=== PATIENT | male | born 1985 | race Caucasian/White ===

== ENCOUNTER 2024-08-14 07:24 | Day surgery (SDC) | payer MEDICAID, SELFPAY ==
--- NOTE | 2024-08-14 08:01 | W.COLOREPORT ---
Date of service: 08/14/24 Time of Service: 08:02 Colonoscopy Report Procedure Description: PROCEDURES PERFORMED: 1. Colonoscopy PREOPERATIVE DIAGNOSIS: Screening colonoscopy, family history of colon cancer POSTOPERATIVE DIAGNOSIS: Normal terminal ileum, normal colon, normal rectum SURGEON: Paul Jackson MD INDICATION FOR PROCEDURE: the patient is a 38-year-old man whose father had colon cancer at a young age and his sister had colon polyps on her colonoscopy at the age of 41. He has no symptoms. FINDINGS: Normal terminal ileum, normal colon, normal rectum. No polyps anywhere. No inflammation. No obvious diverticular disease. No hemorrhoid disease SURVEILLANCE interval/FOLLOW-UP: 5 years because of the family history. Sooner if any symptoms/changes were to develop. SPECIMENS: None EBL: Minimal COMPLICATIONS: None QUALITY of prep: Excellent Procedure in detail: The patient gave written consent and was in agreement with the indications, the potential risks as well as the benefits of the procedure. They were taken to the endoscopy suite and laid in the left lateral decubitus position. A timeout was performed and anesthesia was administered which was tolerated well. I started the procedure. Digital rectal and visual examination was performed and grossly within normal limits. A well-lubricated flexible colonoscope was then introduced and passed without any notable difficulty all the way to the cecum identified by the ileocecal valve and the appendiceal orifice. The terminal ileum was intubated and looked normal. The scope was then slowly withdrawn with the above-noted findings. The patient tolerated the procedure well and was taken to the PACU in hemodynamically stable condition.
--- NOTE | 2024-08-14 08:02 | W.PM.DSUDISC ---
Date of service: 08/14/24 Discharge Plan Disposition Patient Disposition: Home Condition: Good Discharge Details Attending Provider: Ab Jackson Primary Care Provider: Ji Patiño Home Meds and New Rx's Prescriptions: No Action polyethylene glycol 3350 17 gram/dose powder 238 g PO ONCE Qty: 238 0RF Rx Instructions: take per colonoscopy instructions bisacodyl [Dulcolax (bisacodyl)] 5 mg tablet,delayed release (DR/EC) 5 mg PO ONCE Qty: 4 0RF Rx Instructions: take per colonoscopy instructions nicotine (polacrilex) 4 mg gum 4 mg buccal Q2H Discharge Instructions Additional Instructions: FINDINGS: No colon cancer anywhere. No polyps. No inflammation. Overall nothing to worry about. Healthy. Because of the family history, you should repeat another colonoscopy in 5 years. Activity:: Activity as Tolerated Diet:: As Tolerated Discharge Orders Discharge Orders: Discharge Order (Routine); Ordered 08/14/24 Ordered By: Ab Jackson
[2024-08-14 08:05] VITALS: BP 122/76; PULSE 59; RESP 16; TEMP 36.7; O2SAT 98
[2024-08-14] MEDS: Lactated Ringers 1,000 ML 80 ML IV (08:24)
[2024-08-14 08:41] VITALS: BMI 23.3
--- NOTE | 2024-08-14 08:41 | W.ANESPRE ---
General Info Date of Service Date Performed: 08/14/24 Height: 5 ft 11 in Weight: 76.1 kg Body Mass Index (BMI): 23.3 Surgical Procedure: Operation Date: 08/14/24 08:50 Proposed Procedure Side Surgeon p Colonoscopy Ab Jackson MD Actual Procedure Side Surgeon p Colonoscopy Not Applicable Ab Jackson MD Pre-Op Diagnosis Post-Op Diagnosis Screening Colonoscopy Family hx of colon cancer Meds Allergies and Home Medications Allergies Allergy/AdvReac Type Severity Reaction Status Date / Time No Known Allergies Allergy Verified 08/14/24 08:03 Home Medication ?Medication ?Instructions ?Recorded nicotine (polacrilex) 4 mg gum 4 mg buccal Q2H 07/11/24 bisacodyl 5 mg tablet,delayed 5 mg PO ONCE colonscopy bowel prep 08/01/24 release (Dulcolax (bisacodyl)) #4 tabs polyethylene glycol 3350 17 238 g PO ONCE colonoscopy prep 08/01/24 gram/dose oral powder #238 grams Current Visit Medications: Current Medications Generic Name Dose Route Start Last Admin Trade Name Freq PRN Reason Stop Dose Admin Ringer's Solution 1,000 mls @ 80 mls/hr 08/14/24 06:00 08/14/24 08:24 IV 08/14/24 23:59 80 mls/hr INFUSION DOUG Administration IV Miscellaneous Supplies 1 each 08/14/24 06:00 Iv Access IV 08/14/24 23:59 DIRECTED DOUG Sodium Chloride 0 ml 08/14/24 06:00 Normal Saline Flush 10 Ml Syr IV 08/14/24 23:59 PRN PRN Sodium Chloride 0 ml 08/14/24 06:00 Normal Saline 10 Ml Vial IJ 08/14/24 23:59 DIRECTED PRN Sterile Water 0 ml 08/14/24 06:00 Water,Injection,Sterile 10 Ml Vial IJ 08/14/24 23:59 DIRECTED PRN PFSH Active Problems Active Problems: Problem Status Onset Code Family history of colon cancer in father Acute Z80.0 Adjustment disorder with mixed anxiety and depressed mood Acute F43.23 Opioid dependence in remission Acute F11.21 Medical History Medical History Nicotine dependence in remission Surgical History Surgical History History of urologic surgery Hx of wisdom tooth extraction Tobacco Smoking/Tobacco Use Status: Current every day Tobacco Type: smokeless tobacco Alcohol Alcohol Intake: never Substance Use Substance use: Daily Substance use type: marijuana Details: marijuana: t-2, couple hits Vital Signs and Lab Results Vital Signs Most Recent Vital Signs in EMR: Most Recent Vital Signs Temp Pulse Resp BP Pulse Ox 36.7 C 59 L 16 122/76 98 08/14/24 08:05 08/14/24 08:05 08/14/24 08:05 08/14/24 08:05 08/14/24 08:05 Lab Results Blood Type / Crossmatch: No Data to Display Complete Blood Count: No Data to Display Complete Metabolic Panel: No Data to Display Liver Function Panel: No Data to Display Coagulation Panel: No Data to Display Cardiac Panel: No Data to Display Arterial Blood Gas: No Data to Display Venous Blood Gas: No Data to Display Pancreas Panel: No Data to Display Thyroid Panel: No Data to Display Infectious Disease: No Data to Display Blood Cultures: No Data to Display Toxicology Panel: No Data to Display Anesthesia Assessment and Plan Anesthesia History Personal History: No History of Anesthesia Complications Family History: No Family History of Anesthesia Complications Exercise Tolerance Exercise Tolerance: Metabolic Equivalents>4 Pertinent Negatives Pertinent Negatives: No Symptoms of GERD Cardiac & Pulmonary Exam Cardiac Exam: Normal S1/S2 Heart Sounds Pulmonary Exam: Clear Bilateral Breath Sounds Implantable Cardiac Device Does patient have a Pacemaker or an ICD?: No Airway Exam Known Difficult Airway: No Mallampati Class: 2 Mouth Opening: Normal (> 3cm) Thyromental Distance: Greater than 3 cm Neck Range of Motion: Full ROM Neck Circumference: Normal Teeth Condition: Normal Dentition ASA Classification ASA Score: ASA 2 Emergency Case?: No NPO Status NPO Status: NPO Clears >2 hours, Solids >8 hours Anesthesia Plan Resuscitation Status: Full Code Anesthesia Technique: General Anesthesia Airway Planned: Natural Airway Monitors Used: Standard Monitors
[2024-08-14 09:04] VITALS: BP 82/57; PULSE 58; RESP 14; TEMP 36.4; O2SAT 96
--- NOTE | 2024-08-14 09:11 | W.ANESPOSTOP ---
Postoperative Evaluation Date, Time and Location Date Performed: 08/14/24 Time Performed: 09:11 Patient Location: Day Surgery Unit Vital Signs Most Recent Imported Vital Signs: Most Recent Vital Signs Temp Pulse Resp BP Pulse Ox 36.7 C 59 L 16 122/76 98 08/14/24 08:05 08/14/24 08:05 08/14/24 08:05 08/14/24 08:05 08/14/24 08:05 Pain Score Most Recent Pain Score: Most Recent Pain Score Pain Level 0 08/14/24 08:05 Assessment Mental Status: Awake (Alert & Oriented to Patient Baseline) Airway and Respiratory Function: Patent airway with normal (patient baseline) respiratory exam Cardiovascular Function: Hemodynamically Stable Hydration Status: Adequately Hydrated Nausea & Vomiting: No Nausea or Vomiting Pain: Pt. Denies Any Pain Peripheral Nerve Block: Patient did not receive a nerve block
[2024-08-14 09:24] VITALS: BP 101/64; PULSE 54; RESP 18; TEMP 36.4; O2SAT 98
== END 2024-08-14 09:44 | disposition home or self-care (01) ==
PROVIDERS: PCP Family Medicine; Visit Provider Student in an Organized Health Care Education/Training Program
PROC: 0DJD8ZZ Inspection of Lower Intestinal Tract, Via Natural or Artificial Opening Endoscopic (ICD-10-PCS; CPT 45378; principal; 2024-08-14 08:45)
DX: Z12.11 Encounter for screening for malignant neoplasm of colon (principal); Z80.0 Family history of malignant neoplasm of digestive organs
CPT/HCPCS: 45378; J2003; J2704

== ENCOUNTER 2024-11-22 13:37 | Outpatient (REF) | payer MEDICAID, SELFPAY ==
[2024-11-22 14:59] LABS: ALT 23 U/L (16-63); AST 23 U/L (15-37); Albumin 4.2 g/dL (3.4-5.0); Alkaline Phosphatase 67 U/L (46-116); Anion Gap 9.5 mmol/L (3-11); BUN 24 mg/dL (7-18); Bilirubin, Total 0.6 mg/dL (0.2-1.0); CO2 27.5 mmol/L (21.0-32.0); Calcium 9.4 mg/dL (8.5-10.1); Chloride 103 mmol/L (98-107); Cholesterol 176 mg/dL (<200); Estimated GFR 99.41 (mL/min/1.73m2); Glucose 89 mg/dL (74-106); HDL Cholesterol 83 mg/dL (>or=40); Potassium 3.4 mmol/L (3.5-5.1); Sodium 140 mmol/L (136-145); Total Protein 7.1 g/dL (6.4-8.2)
[2024-11-22 15:18] LABS: Triglyceride <25 mg/dL (<150)
[2024-11-25 12:46] LABS: LDL CHOLESTEROL 71 mg/dL (<160)
== END 2024-11-22 13:38 | disposition home or self-care (01) ==
LOC: NCHCN 13:37
PROVIDERS: PCP Family Medicine; Visit Provider Family Medicine
DX: Z00.00 Encounter for general adult medical examination without abnormal findings (principal)
CPT/HCPCS: 80053; 80061; 83721